=== PATIENT | female | born 1975 | race Asian ===

== ENCOUNTER 2016-11-20 16:04 | Outpatient (CLI) | payer OTHER | END 2016-11-20 23:09 | disposition home or self-care (01) | LOC: US 16:04 | DX: D25.9 Leiomyoma of uterus, unspecified (principal) ==

== ENCOUNTER 2020-03-29 14:13 | Emergency (ER) | payer OTHER ==
[~2020-03-29] VITALS: Ht 157.5 cm; Wt 87.1 kg
[2020-03-29 15:15] LABS: POTASSIUM 3.7 mmol/L (3.6-5.2); SODIUM 137 mmol/L (136-145)
[2020-03-29 15:36] LABS: PLATELET COUNT 311 K/uL (152-353)
[2020-03-29 16:03] VITALS: BP 121/80; TEMP 98.9
== END 2020-03-29 16:03 | disposition home or self-care (01) ==
LOC: ED 14:13
PROVIDERS: Family Medicine
DX: R00.0 Tachycardia, unspecified (principal); H65.191 Other acute nonsuppurative otitis media, right ear
CPT/HCPCS: 80053; 82550; 82553; 84484; 85027; 93005; 99283

== ENCOUNTER 2020-07-27 13:20 | Outpatient (CLI) | payer OTHER | END 2020-07-27 19:37 | disposition home or self-care (01) | LOC: NM 13:20 | DX: R10.11 Right upper quadrant pain (principal) | CPT/HCPCS: A9537 ==